=== PATIENT | female | born 1980 | race Caucasian/White ===

== ENCOUNTER 2016-07-04 11:58 | Inpatient (IN) | payer OTHER ==
[~2016-07-04] VITALS: Ht 154.9 cm; Wt 94.4 kg
[~2016-07-04 11:58] MED LIST: ADVIL,NUPRIN,M200 MG PO; AFRIN,GENASAL D15 ML BOTH NARES; ALPRAZOLAM0.5 MG; ANTI-DIARRHEAL2 M2 PO; ATHLETE S FOOT TP; BACLOFEN10 MG PO; BACTRIM,SEPT1 TABLET PO; BENADRYL ALLERG25 MG PO; BENADRYL25 MG PO; BUPRENORPHIN-N1 EACH SL; BUPROPION HCL150 M2 PO; BUSPAR15 MG PO; BUSPAR5 M1 PO; BUSPIRONE HCL10 MG PO; BUSPIRONE HCL15 MG; BUSPIRONE HCL15 MG PO; CHLORASEPTIC177 ML MM; CHLORPROMAZINE50 MG PO; CIPRO500 MG PO; CIPROFLOXACIN250 MG PO; CIPROFLOXACIN500 M1 PO; CLONAZEPAM0.5 MG PO; CLONAZEPAM1 MG PO; CLONIDINE HCL0.1 MG PO; COGENTIN0.5 MG PO; CYCLOBENZAPRINE 10 M; DEPAKOTE500 MG PO; DILAUDID2 MG PO; DIVALPROEX SOD500 MG PO; DOCUSATE SODIU100 MG PO; DOXYCYCLINE HY100 M3 PO; DOXYCYCLINE HY100 MG PO; Desyrel PO; ENDOCET 5-3251 EACH PO; ENOXAPARIN40 MG/0.4 SC; ESCITALOPRAM OX10 MG PO; ESCITALOPRAM OX20 MG PO; FLAGYL500 MG PO; FLEXERIL10 MG PO; FLONASE16 G1 BOTH NARES; FLOXIN PO; FLUOXETINE HCL20 MG PO; FLUOXETINE HCL40 MG PO; Flagyl PO; Habitrol,Nicoderm CQ TD; INDERAL10 MG PO; K-DUR20 MEQ PO; KLONOPIN1 MG PO; LEVAQUIN750 MG PO; LEVOFLOXACIN750 MG PO; LEXAPRO10 MG PO; LEXAPRO20 MG PO; LITHIUM CARBON300 M2 PO; LITHIUM CARBON300 MG PO; LITHOBID300 MG PO; LONG ACTING NAS15 ML BOTH NARES; LORATADINE10 M2 PO; Levaquin PO; MAALOX ADVANCE355 ML PO; MAG-AL LIQUID30 ML PO; MEDROL DOSEPAK4 MG PO; MELATONIN10 M2 PO; MELATONIN3 MG PO; METHADONE10 MG/1 M1 PO; METRONIDAZOLE500 MG PO; MILK OF MAGNESI10 ML PO; MIRALAX255 GM PO; MIRTAZAPINE30 MG PO; MORPHINE SULFAT15 M1 PO; MOTRIN IB200 MG PO; MOTRIN800 MG PO; MS CONTIN,ORAMO15 M1 PO; MS Contin,Oramorph S PO; MUCINEX COLD-F177 ML PO; NAPROXEN500 MG PO; NAVANE5 MG PO; NICOTINE GUM2 MG BC; NICOTINE PATCH1 EAC2 TD; NORCO 5/3251 TABLET PO; OLANZAPINE10 MG PO; OMEPRAZOLE20 M2; OMEPRAZOLE20 MG PO; OMEPRAZOLE40 M1 PO; ONDANSETRON HCL8 MG PO; ONDANSETRON ODT4 MG PO; OXAYDO5 MG PO; OXYCODONE HCL10 MG PO; OXYCODONE HCL5 MG PO; OXYCODONE-APAP1 EAC6; PANTOPRAZOLE SO20 MG PO; PANTOPRAZOLE SO40 MG PO; PEPTO BISMOL240 ML PO; PERCOCET 10/1 TABLET PO; PERCOCET 5/31 TABLET PO; PERCOCET 7.51 TABLET PO; PERMETHRIN60 GM TP; POTASSIUM CHLO20 ME1 PO; PREDNISONE20 MG PO; PRILOSEC OTC20 MG PO; PRILOSEC20.6 MG PO; PRILOSEC40 MG PO; PROPRANOLOL HCL10 MG PO; PROTONIX20 MG PO; PROTONIX40 MG PO; PROVENTIL HFA6.7 GM IH; PROZAC20 MG PO; PROZAC40 MG PO; Percocet 5/325,Endoc PO; PriLOSEC PO; Protonix PO; QUETIAPINE FUM100 MG PO; QUETIAPINE FUM200 MG PO; QUETIAPINE FUMA50 MG PO; RANITIDINE HCL150 M1 PO; RANITIDINE HCL150 MG PO; REGLAN10 MG PO; REGLAN5 MG PO; REMERON30 M2 PO; RISPERDAL2 MG PO; SENNA LAX8.6 MG PO; SENOKOT,SENN1 TABLET PO; SEROQUEL200 MG PO; SEROQUEL50 MG PO; SLEEP AID25 M1 PO; SUBOXONE 2 MG-1 EACH SL; SUBOXONE 4 MG-1 EACH SL; SUBOXONE 8 MG-1 EAC2 SL; TEGRETOL100 MG PO; TEGRETOL200 MG PO; THERAFLU COLD-1 EAC1 PO; TOPAMAX25 MG PO; TRAMADOL HCL50 MG PO; TRANSDERM-SCO1 PATCH TD; TRAZODONE HCL100 MG PO; TRAZODONE HCL50 MG PO; TYLENOL REGULA325 MG PO; ULTRAM50 MG PO; VENTOLIN HFA18 GM IH; VIBRAMYCIN100 MG PO; Vibramycin, Doryx PO; WELLBUTRIN SR150 MG PO; XANAX0.5 MG PO; Xanax PO; ZANAFLEX4 MG PO; ZOFRAN ODT4 MG PO; ZOFRAN ODT8 MG PO; ZOFRAN4 MG PO; ZOFRAN8 MG PO; ZOLPIDEM TARTRAT5 MG PO; ZYPREXA10 MG PO; ZYPREXA15 MG PO; ZYRTEC10 M3 PO
[2016-07-04] MEDS ORDERED: ZOFRAN8 MG PO (15:23)
[2016-07-04] MEDS ORDERED: PROTONIX40 MG PO (15:23)
[2016-07-04 16:00] VITALS: BP 112/67
[2016-07-05 09:00] VITALS: BP 87/50
[2016-07-05 12:45] VITALS: BP 145/79
[2016-07-05 15:41] VITALS: BP 123/68
[2016-07-05 22:17] VITALS: BP 115/65
[2016-07-06 07:45] VITALS: BP 98/51
[2016-07-06 11:09] VITALS: BP 121/66
[2016-07-06 15:18] VITALS: BP 118/59
[2016-07-07 07:38] VITALS: BP 96/53
[2016-07-07 15:27] VITALS: BP 107/55
[2016-07-08 07:29] VITALS: BP 126/60
[2016-07-08 15:40] VITALS: BP 117/56
[2016-07-08 18:58] VITALS: BP 110/59
[2016-07-09 07:59] VITALS: BP 129/76
[2016-07-09 15:34] VITALS: BP 133/60
[2016-07-10 07:40] VITALS: BP 118/83
[2016-07-10] MEDS ORDERED: QUETIAPINE FUM100 MG PO (09:43)
[2016-07-10] MEDS ORDERED: BACTRIM,SEPT1 TABLET PO (20:17)
== END 2016-07-10 14:25 | disposition home or self-care (01) | DRG 885 ==
LOC: 1WEST 11:58
DX: F31.81 Bipolar II disorder (principal); F60.3 Borderline personality disorder; K29.50 Unspecified chronic gastritis without bleeding; G43.909 Migraine, unspecified, not intractable, without status migrainosus; E87.6 Hypokalemia; F14.10 Cocaine abuse, uncomplicated; Z76.5 Malingerer [conscious simulation]; E66.9 Obesity, unspecified; F11.90 Opioid use, unspecified, uncomplicated; S31.119D Laceration without foreign body of abdominal wall, unspecified quadrant without penetration into peritoneal cavity, subsequent encounter; N73.9 Female pelvic inflammatory disease, unspecified; Z91.14 Patient's other noncompliance with medication regimen; Z72.89 Other problems related to lifestyle; Z68.37 Body mass index [BMI] 37.0-37.9, adult; Z59.0 Homelessness; Z86.73 Personal history of transient ischemic attack (TIA), and cerebral infarction without residual deficits
CPT/HCPCS: 97003 GO; 97150 GO; Q0177

== ENCOUNTER 2016-07-10 15:55 | Emergency (ER) | payer OTHER ==
[~2016-07-10] VITALS: Ht 154.9 cm; Wt 98.5 kg
[2016-07-10 17:06] LABS: ADD MIUA? YES; BILIRUBIN NEGATIVE; BLOOD NEGATIVE; COLOR YELLOW ((YELLOW)); GLUCOSE (STRIP) NEGATIVE; KETONES NEGATIVE; LEUKOCYTES SMALL; NITRITE NEGATIVE; PROTEIN (STRIP) NEGATIVE; SPECIFIC GRAVITY 1.022 (1.000-1.030); UROBILINOGEN 0.2 MG/DL (0.2-1.0)
[2016-07-10 17:07] LABS: EOSINOPHIL (%) 0.5 % (0-5); EOSINOPHIL COUNT 0.1 K/uL (0-0.3); HEMATOCRIT 35.6 % (36.0-46.0); IMMATURE GRANULOCYTE (%) 0.5 % (0.0-0.7); IMMATURE GRANULOCYTE COUNT 0.7 K/uL; LYMPHOCYTE COUNT 3.1 K/uL (1.0-2.8); MCH 27.5 PG (29.0-34.0); MCHC 32.9 G/DL (30.0-36.0); MCV 83.8 FL (83-99); MEAN PLAT.VOLUME 8.5 uM^3 (9.5-12.4); MONOCYTE COUNT 0.9 K/uL (0-0.8); NEUTROPHIL (%) 72.1 % (45-76); NEUTROPHIL COUNT 10.7 K/uL (1.8-6.4); PLATELET COUNT 369 K/uL (156-360); RBC DIS.WIDTH-CV 14.4 % (11.8-14.6); RBC DIS.WIDTH-SD 42.8 % (39-53); RED BLOOD COUNT 4.25 M/uL (3.80-5.20); WHITE BLOOD COUNT 14.8 K/uL (4.1-10.2)
[2016-07-10 17:11] LABS: ADD MEDTOX COMMENT Y; AMPHETAMINE NEGATIVE (500 ng/mL); BARBITURATES NEGATIVE (200 ng/mL); BENZODIAZEPINES PRESUMPTIVE POSITIVE (150 ng/mL); COCAINE NEGATIVE (150 ng/mL); INTERNAL CONTROLS VALID? YES; METHADONE NEGATIVE (200 ng/mL); METHAMPHETAMINE NEGATIVE (500 ng/mL); OPIATES (MORPHINE) NEGATIVE (100 ng/mL); OXYCODONE NEGATIVE (100 ng/mL); PHENCYCLIDINE NEGATIVE (25 ng/mL); PROPOXYPHENE NEGATIVE (300 ng/mL); THC CANNABINOIDS NEGATIVE (50 ng/mL); TRICYCLIC ANTIDEPRESSANTS PRESUMPTIVE POSITIVE (300 ng/mL)
[2016-07-10 17:15] LABS: CHLORIDE 104 mEq/L (99-109); POTASSIUM 4.3 mEq/L (3.7-5.4); SODIUM 139 mEq/L (136-147)
[2016-07-10 17:17] LABS: GLUCOSE 98 mg/dL (70-99)
[2016-07-10 17:18] LABS: ANION GAP 8 MEQ/L (2-14)
[2016-07-10 17:19] LABS: TOTAL BILIRUBIN 0.2 mg/dL (0.0-1.0)
[2016-07-10 17:20] LABS: SERUM ETHYL ALCOHOL < 10 mg/dL
[2016-07-10 17:21] LABS: GFR ESTIMATE (CALCULATED) > 59 mL/min/
[2016-07-10 17:22] LABS: ALKALINE PHOSPHATASE 62 IU/L (3-129)
[2016-07-10 17:23] LABS: UREA NITROGEN (BUN) 15 mg/dL (9-23)
[2016-07-10 17:24] LABS: SALICYLATE < 5.0 MG/DL (15-30)
[2016-07-10 19:21] LABS: BACTERIA 4+; EPITHELIAL CELLS 4+; MUCUS NONE SEEN; RED BLOOD CELLS 0-5 /HPF (0-5); UCUL ADDED? YES; WHITE BLOOD CELLS 0-5 /HPF (0-5)
[2016-07-10 19:22] LABS: CASTS NONE SEEN /LPF; CRYSTALS NONE SEEN
[2016-07-10] MEDS ORDERED: BACTRIM,SEPT1 TABLET PO (20:17)
[2016-07-10 21:24] VITALS: BP 136/72
[2016-07-10 21:37] LABS: BENZODIAZEPINES QUANT VALUE 0 NG/ML
[2016-07-10 21:38] LABS: BENZODIAZEPINES, URINE SCREEN Negative (200 ng/mL)
== END 2016-07-10 21:25 | disposition home or self-care (01) ==
LOC: EME 15:55
PROVIDERS: Emergency Medicine
DX: F32.9 Major depressive disorder, single episode, unspecified (principal); S00.83XA Contusion of other part of head, initial encounter; S00.81XA Abrasion of other part of head, initial encounter; N39.0 Urinary tract infection, site not specified; X83.8XXA Intentional self-harm by other specified means, initial encounter; F34.1 Dysthymic disorder; F60.3 Borderline personality disorder; I10 Essential (primary) hypertension; F17.200 Nicotine dependence, unspecified, uncomplicated; Z71.6 Tobacco abuse counseling; Z91.040 Latex allergy status; Z88.1 Allergy status to other antibiotic agents; Z88.6 Allergy status to analgesic agent; Z88.8 Allergy status to other drugs, medicaments and biological substances
CPT/HCPCS: 70450; 80053; 81003; 84999; 85025; 87086; 90837; 99281; 99285; G0480

== ENCOUNTER 2016-07-21 08:32 | Observation (INO) | payer OTHER ==
[~2016-07-21] VITALS: Ht 154.9 cm; Wt 91.5 kg
[2016-07-21 09:50] LABS: MCH 26.8 PG (29.0-34.0); MCHC 32.3 G/DL (30.0-36.0); MCV 82.8 FL (83-99); RBC DIS.WIDTH-CV 15.4 % (11.8-14.6); RBC DIS.WIDTH-SD 46.1 % (39-53); RED BLOOD COUNT 4.71 M/uL (3.80-5.20)
[2016-07-21 09:57] LABS: WHITE BLOOD COUNT 6.9 K/uL (4.1-10.2)
[2016-07-21 09:58] LABS: CHLORIDE 107 mEq/L (99-109); POTASSIUM 3.5 mEq/L (3.7-5.4); SODIUM 139 mEq/L (136-147)
[2016-07-21 10:00] LABS: GLUCOSE 112 mg/dL (70-99)
[2016-07-21 10:01] LABS: ANION GAP 11 MEQ/L (2-14)
[2016-07-21 10:02] LABS: TOTAL BILIRUBIN 0.5 mg/dL (0.0-1.0)
[2016-07-21 10:03] LABS: ALKALINE PHOSPHATASE 74 IU/L (3-129)
[2016-07-21 10:04] LABS: GFR ESTIMATE (CALCULATED) > 59 mL/min/
[2016-07-21 10:05] LABS: UREA NITROGEN (BUN) 15 mg/dL (9-23)
[2016-07-21 10:12] LABS: QUANTITATIVE HCG < 4.0 MIU/ML
[2016-07-21 11:17] LABS: INFLUENZA A VIRAL ANTIGEN NEGATIVE; INFLUENZA B VIRAL ANTIGEN NEGATIVE
[2016-07-21 11:34] LABS: PLATELET COUNT 217 K/uL (156-360)
[2016-07-21 14:12] LABS: ADD MIUA? NO; BILIRUBIN NEGATIVE; BLOOD NEGATIVE; COLOR YELLOW ((YELLOW)); GLUCOSE (STRIP) NEGATIVE; KETONES >=80; LEUKOCYTES NEGATIVE; NITRITE NEGATIVE; PROTEIN (STRIP) NEGATIVE; UCUL ADDED? NO
[2016-07-21 15:49] VITALS: BP 129/67
[2016-07-21 16:00] VITALS: BP 115/69
[2016-07-21 19:18] LABS: METH RESISTANT S AUREUS PCR NEGATIVE (NEGATIVE)
[2016-07-21 19:34] LABS: PROBE CHECK PASS; SPECIMEN PROCESSING CONTROL PASS
[2016-07-21 20:28] VITALS: BP 99/56
[2016-07-22 00:11] VITALS: BP 103/55
[2016-07-22 04:14] VITALS: BP 111/59
[2016-07-22 08:03] VITALS: BP 133/82
[2016-07-22 10:36] VITALS: BP 135/65
[2016-07-22] MEDS ORDERED: ZOFRAN8 MG PO (13:24)
== END 2016-07-22 13:47 | disposition home or self-care (01) ==
LOC: EME 08:32 → EDOF 14:36 → 5WEST 15:39
PROVIDERS: Hospitalist; Nurse Practitioner Family
DX: R10.32 Left lower quadrant pain (principal); R19.7 Diarrhea, unspecified; R11.2 Nausea with vomiting, unspecified; K21.9 Gastro-esophageal reflux disease without esophagitis; G89.29 Other chronic pain; F31.9 Bipolar disorder, unspecified; F32.9 Major depressive disorder, single episode, unspecified; Z91.5 Personal history of self-harm; F19.10 Other psychoactive substance abuse, uncomplicated; E87.6 Hypokalemia; F60.3 Borderline personality disorder; F17.200 Nicotine dependence, unspecified, uncomplicated; Z82.49 Family history of ischemic heart disease and other diseases of the circulatory system; Z80.3 Family history of malignant neoplasm of breast; Z88.8 Allergy status to other drugs, medicaments and biological substances; Z91.040 Latex allergy status
CPT/HCPCS: 74177; 80053; 81003; 84702; 85027; 87493; 87502; 87641; 93005; 99281; 99285; C9113; G0378; J1170; J2405; J7030

== ENCOUNTER 2016-07-29 07:55 | Emergency (ER) | payer OTHER ==
[~2016-07-29] VITALS: Ht 154.9 cm; Wt 89.2 kg
[2016-07-29 09:04] LABS: HEMATOCRIT 38.5 % (36.0-46.0); MCH 27.7 PG (29.0-34.0); MCV 81.4 FL (83-99); MEAN PLAT.VOLUME 9.2 uM^3 (9.5-12.4); PLATELET COUNT 250 K/uL (156-360); RBC DIS.WIDTH-CV 16.1 % (11.8-14.6); RBC DIS.WIDTH-SD 47.4 % (39-53); RED BLOOD COUNT 4.73 M/uL (3.80-5.20); WHITE BLOOD COUNT 7.7 K/uL (4.1-10.2)
[2016-07-29 09:07] LABS: EOSINOPHIL (%) 0.1 % (0-5); IMMATURE GRANULOCYTE (%) 0.1 % (0.0-0.7); IMMATURE GRANULOCYTE COUNT 0.1 K/uL; LYMPHOCYTE COUNT 1.4 K/uL (1.0-2.8); MONOCYTE (%) 7.1 % (3-12); MONOCYTE COUNT 0.6 K/uL (0-0.8); NEUTROPHIL (%) 74.3 % (45-76); NEUTROPHIL COUNT 5.7 K/uL (1.8-6.4)
[2016-07-29 09:29] LABS: BILIRUBIN NEGATIVE; BLOOD NEGATIVE; COLOR YELLOW ((YELLOW)); GLUCOSE (STRIP) NEGATIVE; KETONES NEGATIVE; LEUKOCYTES NEGATIVE; NITRITE NEGATIVE; PROTEIN (STRIP) NEGATIVE; SPECIFIC GRAVITY 1.017 (1.000-1.030); UROBILINOGEN 0.2 MG/DL (0.2-1.0)
[2016-07-29 09:35] LABS: ADD MIUA? NO; UCUL ADDED? NO
[2016-07-29 09:38] LABS: ANION GAP 14 MEQ/L (2-14); CHLORIDE 103 MEQ/L (99-109); GFR ESTIMATE (CALCULATED) > 59 mL/min/; GLUCOSE 117 mg/dL (70-99); POTASSIUM 2.8 MEQ/L (3.7-5.4); SAMPLE HEMOLYSIS CHECK 0; SAMPLE ICTERIC CHECK 0; SAMPLE LIPEMIA CHECK 0; SODIUM 143 MEQ/L (136-147); UREA NITROGEN (BUN) 6 mg/dL (9-23)
[2016-07-29 10:09] LABS: QUANTITATIVE HCG < 4.0 MIU/ML
[2016-07-29 11:16] LABS: ADD MIUA? YES; BILIRUBIN SMALL; BLOOD LARGE; COLOR RED ((YELLOW)); GLUCOSE (STRIP) NEGATIVE; KETONES TRACE; LEUKOCYTES MODERATE; NITRITE POSITIVE; PH, URINE 5.5 (5-8); PROTEIN (STRIP) 100; SPECIFIC GRAVITY 1.023 (1.000-1.030)
[2016-07-29 11:31] LABS: RED BLOOD CELLS TNTC /HPF (0-5); UCUL ADDED? YES
[2016-07-29 15:01] LABS: CHLORIDE 107 mEq/L (99-109); SODIUM 144 mEq/L (136-147)
[2016-07-29 15:03] LABS: GLUCOSE 107 mg/dL (70-99)
[2016-07-29 15:04] LABS: ANION GAP 15 MEQ/L (2-14)
[2016-07-29 15:07] LABS: GFR ESTIMATE (CALCULATED) > 59 mL/min/
[2016-07-29 15:08] LABS: POTASSIUM 3.5 mEq/L (3.7-5.4); UREA NITROGEN (BUN) 6 mg/dL (9-23)
[2016-07-29] MEDS ORDERED: K-DUR20 MEQ PO (15:16)
[2016-07-29 15:34] VITALS: BP 130/81
== END 2016-07-29 16:10 | disposition home or self-care (01) ==
LOC: EME 07:55
PROVIDERS: Emergency Medicine
DX: R10.30 Lower abdominal pain, unspecified (principal); R11.10 Vomiting, unspecified; R19.7 Diarrhea, unspecified; E87.6 Hypokalemia; F32.9 Major depressive disorder, single episode, unspecified; F41.9 Anxiety disorder, unspecified; I10 Essential (primary) hypertension; K21.9 Gastro-esophageal reflux disease without esophagitis; Z85.118 Personal history of other malignant neoplasm of bronchus and lung; F17.200 Nicotine dependence, unspecified, uncomplicated
CPT/HCPCS: 80048; 80048 91; 81003; 84702; 85025; 87086; 90839; 99281; 99285; J1170; J2270; J2405; J7040

== ENCOUNTER 2016-08-14 06:22 | Emergency (ER) | payer OTHER ==
[~2016-08-14] VITALS: Ht 154.9 cm; Wt 92.5 kg
[2016-08-14] MEDS ORDERED: ZOFRAN ODT4 MG PO (10:25)
[2016-08-14] MEDS ORDERED: PERCOCET 5/31 TABLET PO (10:25)
[2016-08-14 10:58] VITALS: BP 126/99
== END 2016-08-14 11:00 | disposition home or self-care (01) ==
LOC: EME 06:22
DX: G43.909 Migraine, unspecified, not intractable, without status migrainosus (principal); R19.7 Diarrhea, unspecified; I10 Essential (primary) hypertension; F17.200 Nicotine dependence, unspecified, uncomplicated
CPT/HCPCS: 99281; 99285; J1170; J1200; J2765; J7030

== ENCOUNTER 2016-08-24 17:35 | Emergency (ER) | payer OTHER ==
[~2016-08-24] VITALS: Ht 154.9 cm; Wt 91.4 kg
[2016-08-24 19:13] LABS: RED BLOOD COUNT 4.93 M/uL (3.80-5.20); WHITE BLOOD COUNT 12.7 K/uL (4.1-10.2)
[2016-08-24 19:14] LABS: HEMATOCRIT 39.3 % (36.0-46.0); MCH 27.2 PG (29.0-34.0); MCHC 34.1 G/DL (30.0-36.0); MCV 79.7 FL (83-99); RBC DIS.WIDTH-CV 15.9 % (11.8-14.6); RBC DIS.WIDTH-SD 45.9 % (39-53)
[2016-08-24 19:21] LABS: CHLORIDE 108 mEq/L (99-109); POTASSIUM 4.3 mEq/L (3.7-5.4); SODIUM 141 mEq/L (136-147)
[2016-08-24 19:24] LABS: GLUCOSE 171 mg/dL (70-99)
[2016-08-24 19:25] LABS: ANION GAP 16 MEQ/L (2-14); TOTAL BILIRUBIN 0.5 mg/dL (0.0-1.0)
[2016-08-24 19:27] LABS: ALKALINE PHOSPHATASE 77 IU/L (3-129); GFR ESTIMATE (CALCULATED) > 59 mL/min/; MEAN PLAT.VOLUME ND uM^3 (9.5-12.4); PLATELET COUNT ND K/uL (156-360)
[2016-08-24 19:28] LABS: UREA NITROGEN (BUN) 16 mg/dL (9-23)
[2016-08-24 19:36] LABS: QUANTITATIVE HCG < 4.0 MIU/ML
[2016-08-24] MEDS ORDERED: PERCOCET 5/31 TABLET PO (23:52)
[2016-08-24] MEDS ORDERED: ZOFRAN4 MG PO (23:52)
[2016-08-25 00:17] VITALS: BP 148/92
[2016-08-25] MEDS ORDERED: VIBRAMYCIN100 MG PO (22:06)
[2016-08-25] MEDS ORDERED: COMPAZINE10 MG PO (22:10)
[2016-08-25] MEDS ORDERED: LORTAB 5-325 M1 EACH PO (22:11)
== END 2016-08-25 00:22 | disposition home or self-care (01) ==
LOC: EME 17:35
DX: G89.29 Other chronic pain (principal); R10.32 Left lower quadrant pain; R11.2 Nausea with vomiting, unspecified; N93.9 Abnormal uterine and vaginal bleeding, unspecified; R34 Anuria and oliguria; I10 Essential (primary) hypertension; F17.200 Nicotine dependence, unspecified, uncomplicated
CPT/HCPCS: 76856; 80053; 81003; 84702; 85027; 85049; 99281; 99285; J1200; J2060; J2270; J2405; J2550; J7030

== ENCOUNTER 2016-08-25 20:09 | Emergency (ER) | payer OTHER ==
[~2016-08-25] VITALS: Ht 154.9 cm; Wt 89.6 kg
[2016-08-25 21:26] LABS: EOSINOPHIL (%) 0 % (0-5); HEMATOCRIT 39.5 % (36.0-46.0); IMMATURE GRANULOCYTE (%) 0.2 % (0.0-0.7); IMMATURE GRANULOCYTE COUNT 0.3 K/uL; LYMPHOCYTE COUNT 1.5 K/uL (1.0-2.8); MCH 26.9 PG (29.0-34.0); MCHC 33.7 G/DL (30.0-36.0); MCV 79.8 FL (83-99); MEAN PLAT.VOLUME 8.9 uM^3 (9.5-12.4); MONOCYTE (%) 6.1 % (3-12); MONOCYTE COUNT 0.8 K/uL (0-0.8); NEUTROPHIL (%) 82.1 % (45-76); PLATELET COUNT 363 K/uL (156-360); RBC DIS.WIDTH-CV 16.1 % (11.8-14.6); RED BLOOD COUNT 4.95 M/uL (3.80-5.20); WHITE BLOOD COUNT 13.4 K/uL (4.1-10.2)
[2016-08-25 21:36] LABS: CHLORIDE 101 mEq/L (99-109); SODIUM 140 mEq/L (136-147)
[2016-08-25 21:37] LABS: POTASSIUM 2.9 mEq/L (3.7-5.4)
[2016-08-25 21:38] LABS: GLUCOSE 140 mg/dL (70-99)
[2016-08-25 21:40] LABS: ADD MIUA? YES; BILIRUBIN SMALL; BLOOD LARGE; COLOR AMBER ((YELLOW)); GLUCOSE (STRIP) 50; KETONES 80; LEUKOCYTES MODERATE; NITRITE NEGATIVE; PROTEIN (STRIP) >=500; SPECIFIC GRAVITY 1.028 (1.000-1.030); UROBILINOGEN 0.2 MG/DL (0.2-1.0)
[2016-08-25 21:40] LABS: ANION GAP 16 MEQ/L (2-14)
[2016-08-25 21:42] LABS: GFR ESTIMATE (CALCULATED) > 59 mL/min/
[2016-08-25 21:43] LABS: UREA NITROGEN (BUN) 17 mg/dL (9-23)
[2016-08-25 21:48] LABS: BACTERIA RARE /HPF; EPITHELIAL CELLS 1+ /HPF; MUCUS 4+ /LPF; RED BLOOD CELLS TNTC /HPF (0-5); UCUL ADDED? NO; WHITE BLOOD CELLS 40-50 /HPF (0-5)
[2016-08-25] MEDS ORDERED: VIBRAMYCIN100 MG PO (22:06)
[2016-08-25] MEDS ORDERED: COMPAZINE10 MG PO (22:10)
[2016-08-25] MEDS ORDERED: LORTAB 5-325 M1 EACH PO (22:11)
[2016-08-25 22:46] VITALS: BP 187/134
== END 2016-08-25 22:45 | disposition home or self-care (01) ==
LOC: EME → EDBD 20:09 → EME 20:09
PROVIDERS: Emergency Medicine
DX: N73.9 Female pelvic inflammatory disease, unspecified (principal); E87.6 Hypokalemia
CPT/HCPCS: 80048; 81003; 85025; 99281; 99284; J0780; J2060

== ENCOUNTER 2016-08-26 09:09 | Emergency (ER) | payer OTHER ==
[~2016-08-26] VITALS: Ht 154.9 cm; Wt 89.6 kg
[~2016-08-26 09:09] MED LIST changes: +COMPAZINE10 MG PO; +LORTAB 5-325 M1 EACH PO
[2016-08-26 11:51] LABS: COLOR RED ((YELLOW))
[2016-08-26 11:52] LABS: GLUCOSE (STRIP) NEGATIVE; KETONES 80; LEUKOCYTES TRACE; NITRITE NEGATIVE; PH, URINE 6.5 (5-8); PROTEIN (STRIP) 100; UROBILINOGEN 0.2 MG/DL (0.2-1.0)
[2016-08-26 11:53] LABS: ADD MIUA? YES; BILIRUBIN SMALL; BLOOD LARGE
[2016-08-26 11:55] LABS: RED BLOOD CELLS TNTC /HPF (0-5)
[2016-08-26 12:05] LABS: EOSINOPHIL (%) 0 % (0-5); HEMATOCRIT 36.6 % (36.0-46.0); IMMATURE GRANULOCYTE (%) 0.2 % (0.0-0.7); IMMATURE GRANULOCYTE COUNT 0.2 K/uL; LYMPHOCYTE COUNT 1.5 K/uL (1.0-2.8); MCH 27.4 PG (29.0-34.0); MCHC 34.2 G/DL (30.0-36.0); MCV 80.1 FL (83-99); MEAN PLAT.VOLUME 9.3 uM^3 (9.5-12.4); MONOCYTE (%) 6.9 % (3-12); MONOCYTE COUNT 0.8 K/uL (0-0.8); NEUTROPHIL (%) 80.1 % (45-76); NEUTROPHIL COUNT 9.2 K/uL (1.8-6.4); PLATELET COUNT 314 K/uL (156-360); RBC DIS.WIDTH-CV 15.9 % (11.8-14.6); RBC DIS.WIDTH-SD 45.7 % (39-53); RED BLOOD COUNT 4.57 M/uL (3.80-5.20); WHITE BLOOD COUNT 11.5 K/uL (4.1-10.2)
[2016-08-26 12:18] LABS: CHLORIDE 101 mEq/L (99-109); POTASSIUM 3.2 mEq/L (3.7-5.4); SODIUM 138 mEq/L (136-147)
[2016-08-26 12:20] LABS: GLUCOSE 107 mg/dL (70-99)
[2016-08-26 12:21] LABS: ANION GAP 14 MEQ/L (2-14)
[2016-08-26 12:24] LABS: GFR ESTIMATE (CALCULATED) > 59 mL/min/
[2016-08-26 12:25] LABS: UREA NITROGEN (BUN) 18 mg/dL (9-23)
[2016-08-26 15:01] VITALS: BP 135/88
== END 2016-08-26 15:25 | disposition home or self-care (01) ==
LOC: EME 09:09
PROVIDERS: Emergency Medicine
DX: R10.2 Pelvic and perineal pain (principal); N93.9 Abnormal uterine and vaginal bleeding, unspecified; I10 Essential (primary) hypertension; F17.200 Nicotine dependence, unspecified, uncomplicated; Z85.118 Personal history of other malignant neoplasm of bronchus and lung; Z91.040 Latex allergy status; Z88.1 Allergy status to other antibiotic agents; Z88.0 Allergy status to penicillin
CPT/HCPCS: 80048; 81003; 85025; 99281; 99285; J2270; J2405; J2765; J7030

== ENCOUNTER 2016-08-30 22:19 | Inpatient (IN) | payer OTHER ==
[~2016-08-30] VITALS: Ht 154.9 cm; Wt 96.6 kg
[2016-08-31 00:11] LABS: EOSINOPHIL (%) 0.1 % (0-5); HEMATOCRIT 35.7 % (36.0-46.0); IMMATURE GRANULOCYTE (%) 0.1 % (0.0-0.7); IMMATURE GRANULOCYTE COUNT 0.1 K/uL; LYMPHOCYTE COUNT 1.6 K/uL (1.0-2.8); MCH 27.6 PG (29.0-34.0); MCHC 34.5 G/DL (30.0-36.0); MEAN PLAT.VOLUME 9.1 uM^3 (9.5-12.4); MONOCYTE (%) 4.5 % (3-12); MONOCYTE COUNT 0.5 K/uL (0-0.8); NEUTROPHIL (%) 81.2 % (45-76); NEUTROPHIL COUNT 9.5 K/uL (1.8-6.4); PLATELET COUNT 367 K/uL (156-360); RBC DIS.WIDTH-CV 15.5 % (11.8-14.6); RBC DIS.WIDTH-SD 44.6 % (39-53); RED BLOOD COUNT 4.46 M/uL (3.80-5.20); WHITE BLOOD COUNT 11.7 K/uL (4.1-10.2)
[2016-08-31 00:25] LABS: CHLORIDE 101 mEq/L (99-109); SODIUM 139 mEq/L (136-147)
[2016-08-31 00:27] LABS: GLUCOSE 142 mg/dL (70-99)
[2016-08-31 00:28] LABS: ANION GAP 15 MEQ/L (2-14)
[2016-08-31 00:29] LABS: TOTAL BILIRUBIN 0.4 mg/dL (0.0-1.0)
[2016-08-31 00:30] LABS: ALKALINE PHOSPHATASE 73 IU/L (3-129)
[2016-08-31 00:31] LABS: GFR ESTIMATE (CALCULATED) > 59 mL/min/
[2016-08-31 00:32] LABS: UREA NITROGEN (BUN) 13 mg/dL (9-23)
[2016-08-31 00:34] LABS: LIPASE 15 U/L (1.0-51.0)
[2016-08-31 00:47] LABS: POTASSIUM 2.4 mEq/L (3.7-5.4)
[2016-08-31 02:30] LABS: ADD MIUA? YES; BILIRUBIN NEGATIVE; BLOOD NEGATIVE; COLOR YELLOW ((YELLOW)); GLUCOSE (STRIP) NEGATIVE; KETONES 80; LEUKOCYTES TRACE; NITRITE NEGATIVE; PROTEIN (STRIP) NEGATIVE; SPECIFIC GRAVITY 1.013 (1.000-1.030); UROBILINOGEN 0.2 MG/DL (0.2-1.0)
[2016-08-31 02:35] LABS: BACTERIA RARE /HPF; EPITHELIAL CELLS RARE /HPF; MUCUS 1+ /LPF; RED BLOOD CELLS 0-5 /HPF (0-5); UCUL ADDED? NO
[2016-08-31] MEDS ORDERED: PROTONIX40 MG PO (07:58)
[2016-08-31] MEDS ORDERED: SEROQUEL100 MG PO (07:59)
[2016-08-31] MEDS ORDERED: VIBRAMYCIN100 MG PO (08:02)
[2016-08-31] MEDS ORDERED: LORADAMED10 MG PO (08:03)
[2016-08-31 13:33] LABS: ANION GAP 11 MEQ/L (2-14); CHLORIDE 102 MEQ/L (99-109); GFR ESTIMATE (CALCULATED) > 59 mL/min/; POTASSIUM 2.8 MEQ/L (3.7-5.4); SAMPLE HEMOLYSIS CHECK 0; SAMPLE ICTERIC CHECK 0; SAMPLE LIPEMIA CHECK 0; SODIUM 140 MEQ/L (136-147); UREA NITROGEN (BUN) 6 mg/dL (9-23)
[2016-08-31 13:35] LABS: GLUCOSE 93 mg/dL (70-99)
[2016-08-31 16:24] VITALS: BP 126/88
[2016-08-31 19:32] VITALS: BP 124/66
[2016-08-31 23:51] VITALS: BP 117/69
[2016-09-01 02:43] VITALS: BP 138/76
[2016-09-01 06:52] LABS: EOSINOPHIL (%) 0.5 % (0-5); IMMATURE GRANULOCYTE (%) 0.2 % (0.0-0.7); LYMPHOCYTE COUNT 2.6 K/uL (1.0-2.8); MCH 27.3 PG (29.0-34.0); MCV 82.9 FL (83-99); MONOCYTE (%) 8.5 % (3-12); MONOCYTE COUNT 0.5 K/uL (0-0.8); NEUTROPHIL (%) 48.6 % (45-76); RBC DIS.WIDTH-SD 48.9 % (39-53); RED BLOOD COUNT 3.62 M/uL (3.80-5.20)
[2016-09-01 06:53] LABS: WHITE BLOOD COUNT 6.1 K/uL (4.1-10.2)
[2016-09-01 07:01] LABS: ALKALINE PHOSPHATASE 48 IU/L (3-129); ANION GAP 7 MEQ/L (2-14); CHLORIDE 105 MEQ/L (99-109); GFR ESTIMATE (CALCULATED) > 59 mL/min/; GLUCOSE 97 mg/dL (70-99); POTASSIUM 3.3 MEQ/L (3.7-5.4); SAMPLE HEMOLYSIS CHECK 0; SAMPLE ICTERIC CHECK 0; SAMPLE LIPEMIA CHECK 0; SODIUM 140 MEQ/L (136-147); TOTAL BILIRUBIN 0.4 MG/DL (0.0-1.0); UREA NITROGEN (BUN) 5 mg/dL (9-23)
[2016-09-01 07:28] VITALS: BP 150/78
[2016-09-01 07:41] LABS: MEAN PLAT.VOLUME 9.1 uM^3 (9.5-12.4); PLAT.SUFFICIENCY ADEQUATE
[2016-09-01 07:45] LABS: PLATELET COUNT 230 K/uL (156-360)
[2016-09-01 11:09] VITALS: BP 120/64
[2016-09-01] MEDS ORDERED: PROTONIX40 MG PO (16:13)
[2016-09-01] MEDS ORDERED: ZOFRAN ODT4 MG PO (16:13)
[2016-09-01] MEDS ORDERED: PERCOCET 5/31 TABLET PO (16:13)
[2016-09-01 16:27] VITALS: BP 116/60
== END 2016-09-01 18:21 | disposition home or self-care (01) | DRG 392 ==
LOC: EME 22:19 → 5EAST 08-31 04:32 → EDOF 08-31 04:32 → 5EAST 08-31 10:52
PROVIDERS: Emergency Medicine; Internal Medicine
DX: K21.0 Gastro-esophageal reflux disease with esophagitis (principal); N73.9 Female pelvic inflammatory disease, unspecified; E87.6 Hypokalemia; K25.9 Gastric ulcer, unspecified as acute or chronic, without hemorrhage or perforation; E66.01 Morbid (severe) obesity due to excess calories; Z68.41 Body mass index [BMI] 40.0-44.9, adult; F31.9 Bipolar disorder, unspecified; F60.3 Borderline personality disorder; R73.9 Hyperglycemia, unspecified; R19.7 Diarrhea, unspecified; K59.00 Constipation, unspecified; F17.200 Nicotine dependence, unspecified, uncomplicated; F19.10 Other psychoactive substance abuse, uncomplicated; I10 Essential (primary) hypertension; G89.29 Other chronic pain; F41.9 Anxiety disorder, unspecified; Z91.5 Personal history of self-harm; Z85.118 Personal history of other malignant neoplasm of bronchus and lung; Z90.2 Acquired absence of lung [part of]; Z86.73 Personal history of transient ischemic attack (TIA), and cerebral infarction without residual deficits; Z91.14 Patient's other noncompliance with medication regimen
CPT/HCPCS: 74176; 80048; 80053; 81003; 83690; 83735; 85025; 85027; 87493; 87506; 93005; 99281; 99285; C9113; J1200; J1630; J1644; J2060; J2405; J2765; J3475; J3480; J7030; J7050; Q0164

== ENCOUNTER 2016-09-08 08:11 | Emergency (ER) | payer OTHER ==
[~2016-09-08] VITALS: Ht 154.9 cm; Wt 92.4 kg
[~2016-09-08 08:11] MED LIST changes: +LORADAMED10 MG PO; +SEROQUEL100 MG PO
[2016-09-08] MEDS ORDERED: COMPAZINE5 MG PO (08:47)
[2016-09-08] MEDS ORDERED: REGLAN10 MG PO (09:57)
[2016-09-08] MEDS ORDERED: CLINDAMYCIN HC150 MG PO (09:57)
[2016-09-08] MEDS ORDERED: IMITREX25 MG PO (09:57)
[2016-09-08] MEDS ORDERED: ZOFRAN4 MG PO (09:57)
[2016-09-08 11:36] VITALS: BP 123/76
== END 2016-09-08 11:35 | disposition home or self-care (01) ==
LOC: EME 08:11
DX: G43.909 Migraine, unspecified, not intractable, without status migrainosus (principal); K02.9 Dental caries, unspecified; R11.10 Vomiting, unspecified; I10 Essential (primary) hypertension; K21.9 Gastro-esophageal reflux disease without esophagitis; Z85.118 Personal history of other malignant neoplasm of bronchus and lung; F17.200 Nicotine dependence, unspecified, uncomplicated
CPT/HCPCS: 99281; 99284; J2765; J3030

== ENCOUNTER 2016-09-13 05:51 | Day surgery (SDC) | payer OTHER ==
[~2016-09-13] VITALS: Ht 154.9 cm; Wt 91.8 kg
[~2016-09-13 05:51] MED LIST changes: +CLINDAMYCIN HC150 MG PO; +COMPAZINE5 MG PO; +IMITREX25 MG PO
[2016-09-13] MEDS ORDERED: CLARITIN10 M3 PO (06:49)
[2016-09-13 06:50] VITALS: BP 127/58
[2016-09-13 07:21] LABS: AMPHETAMINES QUANT VALUE 0 NG/ML; BARBITUATES QUANT VALUE 0 NG/ML; BENZODIAZEPINES QUANT VALUE 0 NG/ML; BENZODIAZEPINES, URINE SCREEN Negative (200 ng/mL); MARIJUANA QUANT VALUE 0 NG/ML; OPIATES QUANTITATIVE VALUE 0 NG/ML; PHENCYCLIDINE QUANT VALUE 0 NG/ML
[2016-09-13 07:43] LABS: EOSINOPHIL (%) 0.7 % (0-5); EOSINOPHIL COUNT 0.1 K/uL (0-0.3); HEMATOCRIT 34.1 % (36.0-46.0); IMMATURE GRANULOCYTE (%) 0.2 % (0.0-0.7); LYMPHOCYTE COUNT 2.5 K/uL (1.0-2.8); MCH 27.5 PG (29.0-34.0); MCHC 32.6 G/DL (30.0-36.0); MCV 84.4 FL (83-99); MEAN PLAT.VOLUME 8.9 uM^3 (9.5-12.4); MONOCYTE (%) 7.2 % (3-12); MONOCYTE COUNT 0.6 K/uL (0-0.8); NEUTROPHIL (%) 61.7 % (45-76); NEUTROPHIL COUNT 5.1 K/uL (1.8-6.4); RBC DIS.WIDTH-CV 15.8 % (11.8-14.6); RBC DIS.WIDTH-SD 48.9 % (39-53); RED BLOOD COUNT 4.04 M/uL (3.80-5.20)
[2016-09-13 07:51] LABS: PLATELET COUNT 323 K/uL (156-360); WHITE BLOOD COUNT 8.2 K/uL (4.1-10.2)
[2016-09-13 08:02] LABS: METH RESISTANT S AUREUS PCR NEGATIVE (NEGATIVE); PROBE CHECK PASS; SPECIMEN PROCESSING CONTROL PASS
[2016-09-13] MEDS ORDERED: HYDROCODON-ACE1 EAC7 PO (09:38)
[2016-09-13] MEDS ORDERED: IBUPROFEN800 MG PO (09:38)
[2016-09-13] MEDS ORDERED: ENDOCET 5-3251 EACH PO (10:48)
[2016-09-13 12:29] VITALS: BP 119/62
[2016-09-13 15:21] VITALS: BP 119/65
[2016-09-13 19:50] VITALS: BP 136/73
[2016-09-13 23:35] VITALS: BP 119/80
[2016-09-14 04:15] VITALS: BP 105/59
[2016-09-14 07:56] VITALS: BP 126/80
[2016-09-14 12:26] VITALS: BP 119/72
== END 2016-09-14 14:24 | disposition home or self-care (01) ==
LOC: SDC → 2EAST 09:34 → 2SOUTH 09:34 → SDC 10:34 → EDSTATUS 10:36 → SDC 10:38 → 2EAST 12:10 → SDC 14:58 → 2EAST 09-14 14:24
PROVIDERS: Orthopaedic Surgery Hand Surgery
DX: N73.9 Female pelvic inflammatory disease, unspecified (principal); G89.29 Other chronic pain; N92.0 Excessive and frequent menstruation with regular cycle; N80.0 Endometriosis of uterus; N83.8 Other noninflammatory disorders of ovary, fallopian tube and broad ligament; F17.210 Nicotine dependence, cigarettes, uncomplicated; F32.9 Major depressive disorder, single episode, unspecified; F31.9 Bipolar disorder, unspecified; Z88.0 Allergy status to penicillin; Z88.1 Allergy status to other antibiotic agents; Z88.8 Allergy status to other drugs, medicaments and biological substances; Z91.040 Latex allergy status; Z86.59 Personal history of other mental and behavioral disorders; Z82.49 Family history of ischemic heart disease and other diseases of the circulatory system; Z83.3 Family history of diabetes mellitus; Z80.3 Family history of malignant neoplasm of breast
CPT/HCPCS: 80306 90; 85025; 86850; 86900; 86901; 87641; 88307; C9113; G0378; J1100; J1170; J1580; J1885; J2250; J2405; J2710; J2765; J3010; J7050

== ENCOUNTER 2016-09-19 07:30 | Emergency (ER) | payer OTHER ==
[~2016-09-19] VITALS: Ht 154.9 cm; Wt 92.2 kg
[~2016-09-19 07:30] MED LIST changes: +CLARITIN10 M3 PO; +HYDROCODON-ACE1 EAC7 PO; +IBUPROFEN800 MG PO
[2016-09-19 08:13] LABS: EOSINOPHIL (%) 0.6 % (0-5); EOSINOPHIL COUNT 0.1 K/uL (0-0.3); HEMATOCRIT 36.8 % (36.0-46.0); IMMATURE GRANULOCYTE (%) 0.4 % (0.0-0.7); INSTRUMENT ABS NEUTROPHIL CT 8.6 K/uL; LYMPHOCYTE COUNT 1.9 K/uL (1.0-2.8); MCH 26.8 PG (29.0-34.0); MCHC 32.1 G/DL (30.0-36.0); MCV 83.4 FL (83-99); MEAN PLAT.VOLUME 8.7 uM^3 (9.5-12.4); MONOCYTE (%) 5.2 % (3-12); MONOCYTE COUNT 0.6 K/uL (0-0.8); NEUTROPHIL (%) 76.6 % (45-76); NEUTROPHIL COUNT 8.6 K/uL (1.8-6.4); PLATELET COUNT 403 K/uL (156-360); RBC DIS.WIDTH-CV 14.6 % (11.8-14.6); RED BLOOD COUNT 4.41 M/uL (3.80-5.20)
[2016-09-19 08:18] LABS: WHITE BLOOD COUNT 11.2 K/uL (4.1-10.2)
[2016-09-19 08:24] LABS: CHLORIDE 103 mEq/L (99-109); POTASSIUM 3.9 mEq/L (3.7-5.4); SODIUM 138 mEq/L (136-147)
[2016-09-19 08:26] LABS: GLUCOSE 116 mg/dL (70-99)
[2016-09-19 08:27] LABS: ANION GAP 12 MEQ/L (2-14)
[2016-09-19 08:29] LABS: GFR ESTIMATE (CALCULATED) > 59 mL/min/
[2016-09-19 08:30] LABS: UREA NITROGEN (BUN) 10 mg/dL (9-23)
[2016-09-19 11:48] LABS: ADD MIUA? YES; BILIRUBIN NEGATIVE; BLOOD NEGATIVE; COLOR YELLOW ((YELLOW)); GLUCOSE (STRIP) NEGATIVE; KETONES 20; LEUKOCYTES LARGE; NITRITE NEGATIVE; PROTEIN (STRIP) NEGATIVE; SPECIFIC GRAVITY 1.035 (1.000-1.030); UROBILINOGEN 0.2 MG/DL (0.2-1.0)
[2016-09-19 12:04] LABS: BACTERIA NONE SEEN /HPF; EPITHELIAL CELLS 1+ /HPF; MUCUS TRACE /LPF; RED BLOOD CELLS 0-5 /HPF (0-5); UCUL ADDED? NO; WHITE BLOOD CELLS 15-20 /HPF (0-5)
[2016-09-19] MEDS ORDERED: CIPRO500 MG PO (13:24)
[2016-09-19] MEDS ORDERED: FLAGYL500 MG PO (13:24)
[2016-09-19 13:42] VITALS: BP 113/60
[2016-09-20] MEDS ORDERED: REGLAN10 MG PO (11:15)
[2016-09-20] MEDS ORDERED: PHENERGAN25 MG PR (11:15)
[2016-09-20] MEDS ORDERED: ZOFRAN ODT4 MG PO (11:15)
== END 2016-09-19 13:43 | disposition home or self-care (01) ==
LOC: EME 07:30
DX: N39.0 Urinary tract infection, site not specified (principal); R10.30 Lower abdominal pain, unspecified; Z90.710 Acquired absence of both cervix and uterus; Z98.890 Other specified postprocedural states; F17.200 Nicotine dependence, unspecified, uncomplicated
CPT/HCPCS: 74177; 76856; 80048; 81003; 83605; 85025; 99281; 99285; J2270; J2405; J7030

== ENCOUNTER 2016-09-20 07:03 | Emergency (ER) | payer OTHER ==
[~2016-09-20] VITALS: Ht 162.6 cm; Wt 88.6 kg
[2016-09-20 07:54] LABS: HEMATOCRIT 34.8 % (36.0-46.0); MCH 26.4 PG (29.0-34.0); MCHC 31.6 G/DL (30.0-36.0); MCV 83.7 FL (83-99); MEAN PLAT.VOLUME 8.7 uM^3 (9.5-12.4); PLATELET COUNT 352 K/uL (156-360); RBC DIS.WIDTH-CV 14.6 % (11.8-14.6); RBC DIS.WIDTH-SD 44.3 % (39-53); RED BLOOD COUNT 4.16 M/uL (3.80-5.20); WHITE BLOOD COUNT 7.9 K/uL (4.1-10.2)
[2016-09-20 08:17] LABS: ANION GAP 13 MEQ/L (2-14); CHLORIDE 103 MEQ/L (99-109); POTASSIUM 3.7 MEQ/L (3.7-5.4); SAMPLE HEMOLYSIS CHECK 0; SAMPLE ICTERIC CHECK 0; SAMPLE LIPEMIA CHECK 0; SODIUM 138 MEQ/L (136-147); TOTAL BILIRUBIN 0.4 MG/DL (0.0-1.0)
[2016-09-20 08:23] LABS: ALKALINE PHOSPHATASE 184 IU/L (3-129); GFR ESTIMATE (CALCULATED) > 59 mL/min/; GLUCOSE 124 mg/dL (70-99); UREA NITROGEN (BUN) 9 mg/dL (9-23)
[2016-09-20 08:43] LABS: ADD MIUA? YES; BILIRUBIN NEGATIVE; BLOOD NEGATIVE; COLOR YELLOW ((YELLOW)); GLUCOSE (STRIP) NEGATIVE; KETONES 80; LEUKOCYTES TRACE; NITRITE NEGATIVE; PROTEIN (STRIP) 30; SPECIFIC GRAVITY 1.023 (1.000-1.030); UROBILINOGEN 0.2 MG/DL (0.2-1.0)
[2016-09-20 08:50] LABS: BACTERIA NONE SEEN /HPF; EPITHELIAL CELLS 1+ /HPF; MUCUS TRACE /LPF; UCUL ADDED? NO; UNCLASSIFIED CASTS 0-5 /LPF; WHITE BLOOD CELLS 0-5 /HPF (0-5)
[2016-09-20 10:48] LABS: INFLUENZA A VIRAL ANTIGEN NEGATIVE; INFLUENZA B VIRAL ANTIGEN NEGATIVE
[2016-09-20] MEDS ORDERED: PHENERGAN25 MG PR (11:15)
[2016-09-20] MEDS ORDERED: ZOFRAN ODT4 MG PO (11:15)
[2016-09-20] MEDS ORDERED: REGLAN10 MG PO (11:15)
[2016-09-20 11:52] VITALS: BP 126/87
== END 2016-09-20 11:52 | disposition home or self-care (01) ==
LOC: EME 07:03
PROVIDERS: Nurse Practitioner Family
DX: R11.2 Nausea with vomiting, unspecified (principal); R19.7 Diarrhea, unspecified; G89.18 Other acute postprocedural pain; R10.2 Pelvic and perineal pain; Z90.710 Acquired absence of both cervix and uterus; F17.200 Nicotine dependence, unspecified, uncomplicated
CPT/HCPCS: 80053; 81003; 85027; 87502; 99281; 99285; J0780; J2270; J2765

== ENCOUNTER 2016-11-27 11:45 | Emergency (ER) | payer OTHER ==
[~2016-11-27] VITALS: Ht 154.9 cm; Wt 95.6 kg
[~2016-11-27 11:45] MED LIST changes: +PHENERGAN25 MG PR
[2016-11-27 12:55] LABS: HEMATOCRIT 32.2 % (36.0-46.0); MCH 24.9 PG (29.0-34.0); MCHC 31.1 G/DL (30.0-36.0); MCV 80.1 FL (83-99); MEAN PLAT.VOLUME 8.7 uM^3 (9.5-12.4); PLATELET COUNT 290 K/uL (156-360); RBC DIS.WIDTH-SD 40.9 % (39-53); RED BLOOD COUNT 4.02 M/uL (3.80-5.20); WHITE BLOOD COUNT 7.8 K/uL (4.1-10.2)
[2016-11-27 13:11] LABS: CHLORIDE 105 mEq/L (99-109); POTASSIUM 3.2 mEq/L (3.7-5.4); SODIUM 141 mEq/L (136-147)
[2016-11-27 13:12] LABS: GLUCOSE 96 mg/dL (70-99)
[2016-11-27 13:14] LABS: ANION GAP 11 MEQ/L (2-14)
[2016-11-27 13:16] LABS: GFR ESTIMATE (CALCULATED) > 59 mL/min/
[2016-11-27 13:19] LABS: UREA NITROGEN (BUN) 8 mg/dL (9-23)
[2016-11-27 13:21] LABS: TROP-I INTERPRETATION NEGATIVE; TROPONIN-I < 0.01 ng/mL (0.0-0.30)
[2016-11-27] MEDS ORDERED: GEODON60 MG PO (13:22)
[2016-11-27] MEDS ORDERED: LITHIUM CARBON300 MG PO (13:23)
[2016-11-27] MEDS ORDERED: OMEPRAZOLE40 M1 PO (13:24)
[2016-11-27] MEDS ORDERED: BUSPAR10 MG PO (13:25)
[2016-11-27 13:35] LABS: CREATINE KINASE 66 IU/L (1-294); TOTAL CK 66 IU/L (1-294)
[2016-11-27 13:35] LABS: ADD MIUA? NO; BILIRUBIN NEGATIVE; BLOOD NEGATIVE; COLOR STRAW ((YELLOW)); GLUCOSE (STRIP) NEGATIVE; KETONES NEGATIVE; LEUKOCYTES NEGATIVE; NITRITE NEGATIVE; PROTEIN (STRIP) NEGATIVE; SPECIFIC GRAVITY 1.008 (1.000-1.030); UCUL ADDED? NO; UROBILINOGEN 0.2 MG/DL (0.2-1.0)
[2016-11-27 13:42] LABS: CK-MB 0.6 ng/mL (0.0-4.9)
[2016-11-27 15:08] LABS: D-DIMER ELISA 0.59 mg/L FEU (< 0.57)
[2016-11-27 15:10] LABS: AMPHETAMINE NEGATIVE (500 ng/mL); BARBITURATES NEGATIVE (200 ng/mL); BENZODIAZEPINES NEGATIVE (150 ng/mL); COCAINE NEGATIVE (150 ng/mL); INTERNAL CONTROLS VALID? YES; METHADONE PRESUMPTIVE POSITIVE (200 ng/mL); METHAMPHETAMINE NEGATIVE (500 ng/mL); OPIATES (MORPHINE) NEGATIVE (100 ng/mL); OXYCODONE NEGATIVE (100 ng/mL); PHENCYCLIDINE NEGATIVE (25 ng/mL); PROPOXYPHENE NEGATIVE (300 ng/mL); THC CANNABINOIDS NEGATIVE (50 ng/mL); TRICYCLIC ANTIDEPRESSANTS NEGATIVE (300 ng/mL)
[2016-11-27 16:06] LABS: TROP-I INTERPRETATION NEGATIVE; TROPONIN-I < 0.01 ng/mL (0.0-0.30)
[2016-11-27] MEDS ORDERED: DOXYCYCLINE HY100 MG PO (18:33)
[2016-11-27] MEDS ORDERED: ZITHROMAX Z-PA250 MG PO (18:33)
[2016-11-27] MEDS ORDERED: PROAIR HFA8.5 GM IH (18:33)
[2016-11-27 18:39] VITALS: BP 148/93
== END 2016-11-27 18:45 | disposition home or self-care (01) ==
LOC: EME 11:45
PROVIDERS: Emergency Medicine
DX: J18.9 Pneumonia, unspecified organism (principal); R42 Dizziness and giddiness; R60.0 Localized edema; E87.6 Hypokalemia; R79.1 Abnormal coagulation profile; Z90.710 Acquired absence of both cervix and uterus; Z83.3 Family history of diabetes mellitus; Z85.118 Personal history of other malignant neoplasm of bronchus and lung; F17.200 Nicotine dependence, unspecified, uncomplicated
CPT/HCPCS: 71020; 71275; 80048; 80178; 81003; 82550 91; 82553; 84484; 85027; 85379; 93005; 94640; 99281; 99285; J7040

== ENCOUNTER 2017-04-12 06:29 | Emergency (ER) | payer OTHER ==
[~2017-04-12] VITALS: Ht 154.9 cm; Wt 105.4 kg
[~2017-04-12 06:29] MED LIST changes: +BUSPAR10 MG PO; +GEODON60 MG PO; +PROAIR HFA8.5 GM IH; +ZITHROMAX Z-PA250 MG PO
[2017-04-12] MEDS ORDERED: NAPROXEN500 MG PO (07:26)
[2017-04-12] MEDS ORDERED: LIDODERM 5% P1 PATCH TD (07:26)
[2017-04-12] MEDS ORDERED: PREDNISONE20 MG PO (07:26)
[2017-04-12 07:33] VITALS: BP 119/71
== END 2017-04-12 07:34 | disposition home or self-care (01) ==
LOC: EME 06:29
DX: M54.42 Lumbago with sciatica, left side (principal); Z88.0 Allergy status to penicillin; Z88.8 Allergy status to other drugs, medicaments and biological substances; F17.200 Nicotine dependence, unspecified, uncomplicated
CPT/HCPCS: 99281; 99284; J7512

== ENCOUNTER 2017-05-05 04:07 | Emergency (ER) | payer OTHER ==
[~2017-05-05] VITALS: Ht 154.9 cm; Wt 105.2 kg
[~2017-05-05 04:07] MED LIST changes: +LIDODERM 5% P1 PATCH TD; +TYLENOL WITH C1 EACH PO
[2017-05-05 04:13] VITALS: BP 134/84
[2017-05-05 05:31] LABS: CHLORIDE 107 mEq/L (99-109); POTASSIUM 3.6 mEq/L (3.7-5.4); SODIUM 140 mEq/L (136-147)
[2017-05-05 05:33] LABS: GLUCOSE 116 mg/dL (70-99)
[2017-05-05 05:34] LABS: ANION GAP 9 MEQ/L (2-14)
[2017-05-05 05:35] LABS: TOTAL BILIRUBIN 0.3 mg/dL (0.0-1.0)
[2017-05-05 05:36] LABS: HEMATOCRIT 36.1 % (36.0-46.0); MCH 26.1 PG (29.0-34.0); MCHC 32.1 G/DL (30.0-36.0); MCV 81.1 FL (83-99); MEAN PLAT.VOLUME 8.8 uM^3 (9.5-12.4); PLATELET COUNT 253 K/uL (156-360); RBC DIS.WIDTH-CV 15.9 % (11.8-14.6); RBC DIS.WIDTH-SD 46.8 % (39-53); RED BLOOD COUNT 4.45 M/uL (3.80-5.20); WHITE BLOOD COUNT 11.1 K/uL (4.1-10.2)
[2017-05-05 05:37] LABS: ALKALINE PHOSPHATASE 77 IU/L (3-129); GFR ESTIMATE (CALCULATED) > 59 mL/min/
[2017-05-05 05:38] LABS: UREA NITROGEN (BUN) 15 mg/dL (9-23)
[2017-05-05 05:40] LABS: LIPASE 6 U/L (1.0-51.0)
[2017-05-05 05:58] LABS: ADD MIUA? YES; BILIRUBIN NEGATIVE; BLOOD NEGATIVE; COLOR YELLOW ((YELLOW)); GLUCOSE (STRIP) NEGATIVE; KETONES NEGATIVE; LEUKOCYTES TRACE; NITRITE NEGATIVE; PROTEIN (STRIP) NEGATIVE; SPECIFIC GRAVITY 1.025 (1.000-1.030); UROBILINOGEN 0.2 MG/DL (0.2-1.0)
[2017-05-05 06:01] LABS: AMPHETAMINE NEGATIVE (500 ng/mL); BENZODIAZEPINES PRESUMPTIVE POSITIVE (150 ng/mL); COCAINE NEGATIVE (150 ng/mL); METHADONE PRESUMPTIVE POSITIVE (200 ng/mL); METHAMPHETAMINE NEGATIVE (500 ng/mL); OPIATES (MORPHINE) PRESUMPTIVE POSITIVE (100 ng/mL); PHENCYCLIDINE NEGATIVE (25 ng/mL); THC CANNABINOIDS NEGATIVE (50 ng/mL); TRICYCLIC ANTIDEPRESSANTS NEGATIVE (300 ng/mL)
[2017-05-05 06:02] LABS: ADD MEDTOX COMMENT Y; BARBITURATES NEGATIVE (200 ng/mL); INTERNAL CONTROLS VALID? YES; OXYCODONE NEGATIVE (100 ng/mL); PROPOXYPHENE NEGATIVE (300 ng/mL)
[2017-05-05 06:36] LABS: EPITHELIAL CELLS 1+ /HPF; MUCUS NONE SEEN /LPF; RED BLOOD CELLS NONE SEEN /HPF (0-5); WHITE BLOOD CELLS NONE SEEN /HPF (0-5)
[2017-05-05 06:37] LABS: BACTERIA 1+ /HPF; CASTS NONE SEEN /LPF; CRYSTALS NONE SEEN; UCUL ADDED? NO
[2017-05-05 07:21] LABS: BENZODIAZEPINES QUANT VALUE 0 NG/ML; BENZODIAZEPINES, URINE SCREEN Negative (200 ng/mL)
== END 2017-05-05 06:33 | disposition home or self-care (01) ==
LOC: EME 04:07
PROVIDERS: Emergency Medicine
DX: R10.9 Unspecified abdominal pain (principal); R11.2 Nausea with vomiting, unspecified; F11.10 Opioid abuse, uncomplicated; F13.10 Sedative, hypnotic or anxiolytic abuse, uncomplicated; Z85.118 Personal history of other malignant neoplasm of bronchus and lung; Z90.49 Acquired absence of other specified parts of digestive tract; Z90.710 Acquired absence of both cervix and uterus; F17.200 Nicotine dependence, unspecified, uncomplicated
CPT/HCPCS: 80053; 81003; 83690; 84999; 85027

== ENCOUNTER 2017-05-05 22:40 | Emergency (ER) | payer OTHER ==
[~2017-05-05] VITALS: Ht 154.9 cm; Wt 105.0 kg
[2017-05-05 22:46] VITALS: BP 135/102
== END 2017-05-05 23:56 | disposition left against medical advice (07) ==
LOC: EME 22:40
DX: M54.9 Dorsalgia, unspecified (principal); G89.29 Other chronic pain; J45.909 Unspecified asthma, uncomplicated; F41.9 Anxiety disorder, unspecified; Z85.118 Personal history of other malignant neoplasm of bronchus and lung; Z88.0 Allergy status to penicillin; Z88.8 Allergy status to other drugs, medicaments and biological substances; Z91.040 Latex allergy status; F17.200 Nicotine dependence, unspecified, uncomplicated
CPT/HCPCS: 81003; 99281; 99285; J3486

== ENCOUNTER 2017-05-22 10:27 | Emergency (ER) | payer OTHER ==
[~2017-05-22] VITALS: Ht 154.9 cm; Wt 101.6 kg
[2017-05-22 11:15] LABS: EOSINOPHIL (%) 0 % (0-5); HEMATOCRIT 37.1 % (36.0-46.0); IMMATURE GRANULOCYTE (%) 0.4 % (0.0-0.7); IMMATURE GRANULOCYTE COUNT 0.1 K/uL; INSTRUMENT ABS NEUTROPHIL CT 13.8 K/uL; LYMPHOCYTE COUNT 2.1 K/uL (1.0-2.8); MCH 26.8 PG (29.0-34.0); MCHC 32.9 G/DL (30.0-36.0); MCV 81.4 FL (83-99); MEAN PLAT.VOLUME 8.2 uM^3 (9.5-12.4); MONOCYTE (%) 4.6 % (3-12); MONOCYTE COUNT 0.8 K/uL (0-0.8); NEUTROPHIL (%) 82.6 % (45-76); NEUTROPHIL COUNT 13.8 K/uL (1.8-6.4); PLATELET COUNT 281 K/uL (156-360); RBC DIS.WIDTH-CV 14.8 % (11.8-14.6); RBC DIS.WIDTH-SD 44.5 % (39-53); RED BLOOD COUNT 4.56 M/uL (3.80-5.20); WHITE BLOOD COUNT 16.7 K/uL (4.1-10.2)
[2017-05-22 11:19] LABS: INTER. NORMALIZED RATIO 1.1; PROTHROMBIN TIME 12.6 SEC (10.2-12.9)
[2017-05-22 11:22] LABS: PTT 23.9 SEC (25-37)
[2017-05-22 11:29] LABS: CHLORIDE 98 mEq/L (99-109); MAGNESIUM 1.7 mg/dL (1.3-2.7); POTASSIUM 2.6 mEq/L (3.7-5.4); SODIUM 138 mEq/L (136-147)
[2017-05-22 11:31] LABS: GLUCOSE 110 mg/dL (70-99)
[2017-05-22 11:32] LABS: ANION GAP 9 MEQ/L (2-14)
[2017-05-22 11:33] LABS: TOTAL BILIRUBIN 0.3 mg/dL (0.0-1.0)
[2017-05-22 11:35] LABS: ALKALINE PHOSPHATASE 73 IU/L (3-129); GFR ESTIMATE (CALCULATED) > 59 mL/min/
[2017-05-22 11:36] LABS: UREA NITROGEN (BUN) 11 mg/dL (9-23)
[2017-05-22] MEDS ORDERED: ZANTAC150 MG PO (15:00)
[2017-05-22] MEDS ORDERED: ZOFRAN ODT4 MG PO (15:00)
[2017-05-22 16:12] LABS: ADD MIUA? YES; BILIRUBIN NEGATIVE; BLOOD NEGATIVE; COLOR YELLOW ((YELLOW)); GLUCOSE (STRIP) NEGATIVE; KETONES 5; LEUKOCYTES NEGATIVE; NITRITE NEGATIVE; PROTEIN (STRIP) 30; SPECIFIC GRAVITY 1.016 (1.000-1.030); UROBILINOGEN 0.2 MG/DL (0.2-1.0)
[2017-05-22 16:20] LABS: BACTERIA RARE /HPF; EPITHELIAL CELLS 1+ /HPF; MUCUS 1+ /LPF; RED BLOOD CELLS 0-5 /HPF (0-5); UCUL ADDED? NO; WHITE BLOOD CELLS 0-5 /HPF (0-5)
[2017-05-22 16:40] VITALS: BP 105/53
== END 2017-05-22 16:42 | disposition home or self-care (01) ==
LOC: EME 10:27
PROVIDERS: Emergency Medicine
DX: R10.30 Lower abdominal pain, unspecified (principal); E87.6 Hypokalemia; R11.2 Nausea with vomiting, unspecified; R50.9 Fever, unspecified; R42 Dizziness and giddiness; Z90.49 Acquired absence of other specified parts of digestive tract; Z90.710 Acquired absence of both cervix and uterus; Z85.118 Personal history of other malignant neoplasm of bronchus and lung; F17.200 Nicotine dependence, unspecified, uncomplicated
CPT/HCPCS: 74176; 80053; 81003; 83735; 85025; 85610; 85730; 93005; 99281; 99285; J1200; J1630; J2270; J2405; J3480; J7030; J7050; S0028

== ENCOUNTER 2017-11-03 09:43 | Emergency (ER) | payer OTHER ==
[~2017-11-03] VITALS: Ht 154.9 cm; Wt 115.3 kg
[~2017-11-03 09:43] MED LIST changes: +ZANTAC150 MG PO
[2017-11-03] MEDS ORDERED: CLEOCIN150 MG PO (11:36)
[2017-11-03] MEDS ORDERED: CLEOCIN300 MG PO (11:36)
[2017-11-03] MEDS ORDERED: MOTRIN600 MG PO (11:37)
[2017-11-03 12:16] VITALS: BP 168/111
== END 2017-11-03 12:18 | disposition home or self-care (01) ==
LOC: EME 09:43
DX: K02.9 Dental caries, unspecified (principal); Z91.040 Latex allergy status; Z88.0 Allergy status to penicillin; Z91.011 Allergy to milk products; Z88.8 Allergy status to other drugs, medicaments and biological substances; Z88.5 Allergy status to narcotic agent; Z88.6 Allergy status to analgesic agent
CPT/HCPCS: 99281; 99283